=== PATIENT | female | born 1985 | race American Indian/Alaskan Native ===

== ENCOUNTER 2018-04-12 00:29 | Emergency (ER) | payer OTHER ==
--- NOTE | 2018-04-12 00:45 | PDOC ---
History of Present Illness - General Chief Complaint: Vaginal Bleeding Stated Complaint: SHORTNESS OF BREATH,ELEVATED BLOOD PRESSURE Time Seen by Provider: 04/12/18 00:45 History Source: Patient Exam Limitations: No Limitations - History of Present Illness Initial Comments: 04/12/18 01:05 32 year old female with PMH AR, HTN presented to ED for high blood pressure. Pt stated she was diagnosed with HTN x3 weeks ago, was told to change her diet to low sodium, and was told to follow up in a few weeks. Pt stated today her blood pressure was 140/100 and she felt lightheaded, prompting her to come to the ED. She admitted to an intermittent frontal headache, shortness of breath, lightheadedness today. She denied chest pain, palpitations, nausea, vomiting, diarrhea. Allergies: NKDA Past History - Past Medical History Allergies/Adverse Reactions: Allergies Allergy/AdvReac Type Severity Reaction Status Date / Time No Known Allergies Allergy Verified 04/12/18 00:52 Home Medications: Ambulatory Orders Ascorbate Calcium [Vitamin C] 500 mg PO DAILY 12/20/13 Cholecalciferol (Vitamin D3) [Vitamin D3] 1,000 unit PO DAILY 12/20/13 Meclizine HCl 25 mg PO DAILY #7 tablet 04/12/18 Anemia: No Asthma: No Cancer: No Cardiac Disorders: Yes ("MILD AORTIC REGURGITATION") CVA: No COPD: No CHF: No Dementia: No Diabetes: No GI Disorders: No Disorders: No HTN: No Hypercholesterolemia: No Liver Disease: No Seizures: No Thyroid Disease: No - Suicide/Smoking/Psychosocial Hx Smoking History: Never smoked Have you smoked in the past 12 months: No Hx Alcohol Use: No Drug/Substance Use Hx: No Substance Use Type: None Review of Systems - Review of Systems Able to Perform ROS?: Yes Comments:: 04/12/18 01:08 General: denied fever, chills, generalized weakness. HEENT: denied sore throat, rhinorrhea, ear pain. Heart: admitted to lightheadedness. denied chest pain, palpitations, syncope, diaphoresis. Respiratory: admitted to shortness of breath. denied cough, sputum production, hemoptysis. Abdomen: denied abdominal pain, nausea, vomiting, diarrhea, constipation, blood in stool. : denied dysuria, increased urinary frequency, hematuria, urinary incontinence , flank pain. Back: denied back pain. Musculoskeletal: denied joint pain, muscle pain, joint swelling. Neurological: admitted to headache. denied dizziness, numbness, tingling, weakness. Skin: denied rash, laceration, abrasion. *Physical Exam - Physical Exam Comments: 04/12/18 01:08 Constitutional: Well-nourished, Well-developed, appearing stated age. HEENT: head is normocephalic, atraumatic. EOMI. PERRLA. Neck: supple. Full ROM. Heart: regular rhythm. no murmurs, rubs or gallops. Lungs: clear to auscultation bilaterally. no crackles, rhonchi or wheezing. no stridor. Abdomen: soft, nontender. normal bowel sounds. no rebound, guarding, masses. Extremities: peripheral pulses intact. no lower extremity edema. Neurological: CN 2-12 grossly intact. moves all four extremities. Psych: awake, alert, oriented x3. follows commands. answers questions appropriately. ED Treatment Course - LABORATORY CBC & Chemistry Diagram: 04/12/18 01:03 04/12/18 01:03 Medical Decision Making - Medical Decision Making 04/12/18 01:08 32 year old female with above PMH presented to ED for high blood pressure associated with intermittent headache, SOB and lightheadedness. Initial Vital Signs Temp Pulse Resp BP Pulse Ox 98 F 93 H 16 127/92 100 04/12/18 00:29 04/12/18 00:29 04/12/18 00:29 04/12/18 00:29 04/12/18 00:29 Afebrile. No tachycardia. No tachypnea. No hypertension. No hypoxia on room air. Labs ordered: CBC, CMP, troponin, BNP, phos, mag, TSH, UA, urine testing Medications ordered: normal saline 1000 cc bolus Imaging ordered: CXR PERC = 0 Negative for hemoptysis, u/l leg swelling, hormone use, surgery<4 weeks, SaO2<95 %, HR>100, >50 y/o. EKG performed at 0124: rate 87, regular rhythm, normal axis, normal intervals, no acute ST changes. 04/12/18 01:36 CBC WBC 9.8 K/mm3 (4.0-10.0) 04/12/18 01:03 RBC 4.74 M/mm3 (3.60-5.2) 04/12/18 01:03 Hgb 14.8 GM/dL (10.7-15.3) 04/12/18 01:03 Hct 41.4 % (32.4-45.2) 04/12/18 01:03 MCV 87.3 fl (80-96) 04/12/18 01:03 MCH 31.1 pg (25.7-33.7) 04/12/18 01:03 MCHC 35.6 g/dl (32.0-36.0) 04/12/18 01:03 RDW 13.0 % (11.6-15.6) 04/12/18 01:03 Plt Count 301 K/MM3 (134-434) D 04/12/18 01:03 MPV 8.4 fl (7.5-11.1) 04/12/18 01:03 Absolute Neuts (auto) 5.4 K/mm3 (1.5-8.0) 04/12/18 01:03 Neutrophils % 55.3 % (42.8-82.8) 04/12/18 01:03 Lymphocytes % 37.1 % (8-40) D 04/12/18 01:03 Monocytes % 5.8 % (3.8-10.2) 04/12/18 01:03 Eosinophils % 1.2 % (0-4.5) 04/12/18 01:03 Basophils % 0.6 % (0-2.0) 04/12/18 01:03 Nucleated RBC % 0 % (0-0) 04/12/18 01:03 No leukocytosis. No anemia. 04/12/18 01:51 Pt ambulated to and from well without assistance. 04/12/18 01:54 CMP Sodium 135 mmol/L (136-145) L 04/12/18 01:03 Potassium 3.6 mmol/L (3.5-5.1) 04/12/18 01:03 Chloride 102 mmol/L (98-107) 04/12/18 01:03 Carbon Dioxide 28 mmol/L (21-32) 04/12/18 01:03 Anion Gap 4 MMOL/L (8-16) L 04/12/18 01:03 BUN 5 mg/dL (7-18) L 04/12/18 01:03 Creatinine 0.7 mg/dL (0.55-1.3) 04/12/18 01:03 Creat Clearance w eGFR > 60 (>60) 04/12/18 01:03 Random Glucose 90 mg/dL (74-106) 04/12/18 01:03 Calcium 9.0 mg/dL (8.5-10.1) 04/12/18 01:03 Phosphorus 3.4 mg/dL (2.5-4.9) 04/12/18 01:03 Magnesium 2.0 mg/dL (1.8-2.4) 04/12/18 01:03 Total Bilirubin 0.5 mg/dL (0.2-1) 04/12/18 01:03 AST 15 U/L (15-37) 04/12/18 01:03 ALT 32 U/L (13-61) 04/12/18 01:03 Alkaline Phosphatase 81 U/L (45-117) 04/12/18 01:03 Troponin I < 0.02 ng/ml (0.00-0.05) 04/12/18 01:03 B-Natriuretic Peptide 35.5 pg/ml (5-125) 04/12/18 01:03 Total Protein 9.2 g/dl (6.4-8.2) H 04/12/18 01:03 Albumin 4.0 g/dl (3.4-5.0) 04/12/18 01:03 TSH 3.93 uIU/ml (0.358-3.74) H 04/12/18 01:03 No clinically significant electrolyte abnormalities. No ABNER. No transaminitis. Normal troponin. Normal BNP. Borderline elevated TSH. 04/12/18 02:08 Urine Test Results Urine Color Colorless 04/12/18 01:21 Urine Appearance Clear 04/12/18 01:21 Urine pH 7.0 (5.0-8.0) 04/12/18 01:21 Ur Specific [place] 1.001 (1.010-1.035) L 04/12/18 01:21 Urine Protein Negative (NEGATIVE) 04/12/18 01:21 Urine Glucose (UA) Negative (NEGATIVE) 04/12/18 01:21 Urine Ketones Negative (NEGATIVE) 04/12/18 01:21 Urine Blood Negative (NEGATIVE) 03/07/19 01:21 Urine Nitrite Negative (NEGATIVE) 04/12/18 01:21 Urine Bilirubin Negative (<2.0 mg/dL) 04/12/18 01:21 Ur Leukocyte Esterase Trace (NEGATIVE) 04/12/18 01:21 No proteinuria. Urine WBC<5 No UTI. 04/12/18 02:28 Pt now reporting dizziness. Pt stated she has had intermittent dizziness x3 months. Imaging ordered: CT head Medications ordered: Meclizine. 04/12/18 03:16 CXR my view: sharp costophrenic angles. no cardiomegaly. no congestive changes. no infiltrate. no large pneumothorax. - Pending official report 04/12/18 03:35 CT head report: no acute brain parenchymal abnormality. no hemorrhage, mass or acute territorial infarct. Pt reassessed, reported she is feeling better. Pt discharged. Discharge medications: Meclizine *DC/Admit/Observation/Transfer Diagnosis at time of Disposition: High blood pressure - Discharge Dispostion Condition at time of disposition: Stable - Prescriptions Prescriptions: Meclizine HCl 25 mg PO DAILY #7 tablet - Referrals Referrals: Milly De Souza MD [Primary Care Provider] - - Patient Instructions Printed Discharge Instructions: DI for High Blood Pressure, How to Monitor Your Blood Pressure at Home Additional Instructions: You were seen today for high blood pressure. Your TSH (thyroid test) was borderline to mildly high, follow up on this finding with your primary care doctor. Your lab work was otherwise normal. Your Chest X-ray was normal. Your Head CT was normal. Monitor your blood pressure at home, taking it every morning and night and recording the values in a diary. Bring this diary to your primary care doctor so they can prescribe you the appropriate medications. Follow up with your primary care doctor in 1-2 days. 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 Return to the Emergency Department for chest pain, shortness of breath, blurry vision, vomiting, blood in urine, blood pressure <180/100 or any other new, worsening or concerning symptoms. - Post Discharge Activity Forms/Work/School Notes: Back to Work
[2018-04-12] MEDS ORDERED: SODIUM CHLORIDE 1,000 ML IV STA (01:01)
--- NOTE | 2018-04-12 01:05 | PDOC ---
Attending Attestation - Resident Resident Name: Ligia Ennis - ED Attending Attestation I have performed the following: I have examined & evaluated the patient, The case was reviewed & discussed with the resident, I agree w/resident's findings & plan - HPI HPI: 04/12/18 03:47 32-year-old female complaining of lightheaded feeling, patient states she feels like her head is "off ". She denies chest pain dyspnea or leg swelling. She does have a history of aortic regurgitation which she is followed by cardiology for. She does admit that she is due for a recheck/echo. She has also stated that the lightheaded feeling was present 3 months ago, she states that at times she feels off balance. It is slightly worse today. There is no associated fever headache neck pain or visual disturbance. - Physicial Exam PE: 04/12/18 03:48 Agree with resident's exam. - Medical Decision Making 04/12/18 03:48 32-year-old female with intermittent lightheadedness Patient is resolved with meclizine 25 mg by mouth EKG shows no significant changes CT scan of the brain was unremarkable Results were discussed with the patient including a slightly elevated TSH level She has agreed to follow-up with both her primary care physician and her cardiology office She is accompanied by her was also verbalized understanding of the instructions.
[2018-04-12 01:19] LABS: BASO % 0.6 % (0-2.0); EOS % 1.2 % (0-4.5); HEMATOCRIT 41.4 % (32.4-45.2); HEMOGLOBIN 14.8 GM/dL (10.7-15.3); LYMPH % 37.1 % (8-40); MCH 31.1 pg (25.7-33.7); MCHC 35.6 g/dl (32.0-36.0); MEAN CELL VOLUME 87.3 fl (80-96); MEAN PLT VOLUME 8.4 fl (7.5-11.1); MONO % 5.8 % (3.8-10.2); NEUT % 55.3 % (42.8-82.8); PLATELET COUNT 301 K/MM3 (134-434); RBC 4.74 M/mm3 (3.60-5.2); WHITE BLOOD COUNT 9.8 K/mm3 (4.0-10.0)
[2018-04-12 01:23] VITALS: TEMP 98; BMI 59.0
[2018-04-12 01:45] LABS: ALK PHOS 81 U/L (45-117); ANION GAP 4 MMOL/L (8-16); BILIRUBIN,TOTAL 0.5 mg/dL (0.2-1); BLOOD UREA NITROGEN 5 mg/dL (7-18); CHLORIDE 102 mmol/L (98-107); CO2 28 mmol/L (21-32); CREATININE 0.7 mg/dL (0.55-1.3); GLUCOSE,RANDOM 90 mg/dL (74-106); POTASSIUM 3.6 mmol/L (3.5-5.1); SGOT/AST 15 U/L (15-37); SGPT/ALT 32 U/L (13-61); SODIUM 135 mmol/L (136-145); TOT PROT 9.2 g/dl (6.4-8.2)
[2018-04-12 01:49] LABS: N-TERMINAL BNP 35.5 pg/ml (5-125); PHOSPHOROUS 3.4 mg/dL (2.5-4.9)
[2018-04-12 02:02] LABS: URINE APPEARANCE CLEAR; URINE BILIRUBIN NEGATIVE (<2.0 mg/dL); URINE COLOR COLORLESS; URINE GLUCOSE (UA) NEGATIVE (NEGATIVE); URINE KETONE NEGATIVE (NEGATIVE); URINE LEUK ESTERASE TRACE (NEGATIVE); URINE NITRITE NEGATIVE (NEGATIVE); URINE PROTEIN NEGATIVE (NEGATIVE); URINE UROBILINOGEN NEGATIVE mg/dL (0.2-1.0)
[2018-04-12 02:15] LABS: INR 0.99 (0.83-1.09); PROTHROMBIN TIME (PATIENT) 11.7 SEC (9.7-13.0)
[2018-04-12 02:16] LABS: EPI CELLS RARE /HPF (FEW); URINE BACTERIA RARE /hpf (NONE SEEN)
[2018-04-12 02:18] LABS: ACTIVATED PTT 30.3 SECONDS (25.2-36.5)
[2018-04-12] MEDS ORDERED: MECLIZINE HCL 25 MG TABLET (FP) PO ONE (02:20)
[2018-04-12] MEDS ORDERED: MECLIZINE HCL 25 MG TABLET (FP) ONE (02:49)
[2018-04-12 05:04] VITALS: BP 130/88; PULSE 88
--- NOTE | 2018-04-12 14:01 | EKG ---
Test Reason : Blood Pressure : / mmHG Vent. Rate : 087 BPM Atrial Rate : 087 BPM P-R Int : 158 ms QRS Dur : 092 ms QT Int : 378 ms P-R-T Axes : 057 046 031 degrees QTc Int : 454 ms NORMAL SINUS RHYTHM NORMAL ECG NO PREVIOUS ECGS AVAILABLE Confirmed by BLADE HAYWOOD MD ([id number]) on 04/12/2018 2:01:31 PM Referred By: Confirmed By:BLADE HAYWOOD MD
== END 2018-04-12 05:06 | disposition home or self-care (01) ==
LOC: JER 00:29
DX: I10 Essential (primary) hypertension (principal); I35.1 Nonrheumatic aortic (valve) insufficiency
CPT/HCPCS: 36415; 70450-TC; 71045-TC-FY; 80053; 81003; 81015; 83735; 83880; 84100; 84443; 84484; 84703; 85025; 85610; 85730; 93005; 93010; 99282-25